=== PATIENT | female | born 1985 | race Caucasian/White ===

== ENCOUNTER 2016-06-15 23:54 | Emergency (ER) | payer BC, OTHER ==
[~2016-06-15] VITALS: Ht 162.6 cm; Wt 88.6 kg
[~2016-06-15 23:54] MED LIST: ACET1TAB40 PO; ACET650S9 PR; CETI10CA PO; HYDR-906 PO; NITR-58 PO; ZOF8 PO
[2016-06-16 00:36] VITALS: Ht 162.6 cm; Wt 88.6 kg
[2016-06-16] MEDS ORDERED: CYCL-319 PO (04:30)
[2016-06-16] MEDS ORDERED: HYDR-906 PO (04:30)
[2016-06-16] MEDS ORDERED: IBUP-1542 PO (04:30)
[2016-06-16 04:40] VITALS: BP 101/60; PULSE 72; RESP 20; TEMP 98.3
--- NOTE | 2016-06-16 04:45 | ERD ---
ER Documentation Chief Complaint Date/Time DATE: 06/16/16 TIME: 04:43 Chief Complaint C/O NECK PAIN, PT WAS PLAY FIGHTING W/ SIBLING HPI 30-year-old female presents here in emergency department for complaints of left neck pain after being told backwards by sibling while playing today in her neck area. Patient describes the pain as throbbing pain, 6/10 scale, is worse upon movement. Patient denies any shortness of breath. Patient denies any numbness or tingling. She did not take any medications for pain. ROS All systems reviewed and are negative except as per history of present illness. Medications Home Meds Active Scripts Cyclobenzaprine Hcl* (Cyclobenzaprine Hcl*) 10 Mg Tablet, 10 MG PO TID, #15 TAB Prov:ROMAN ALCOCER NP 06/16/16 Hydrocodone/Acetaminophen ([place] 5-325 Tablet) 1 Each Tablet, 1 TAB PO Q6H Y for SEVERE PAIN LEVEL 7-10, #20 TAB Prov:ROMAN ALCOCER NP 06/16/16 Ibuprofen* (Motrin*) 600 Mg Tab, 600 MG PO Q6H Y for PAIN AND OR ELEVATED TEMP, #30 TAB Prov:ROMAN ALCOCER NP 06/16/16 Hydrocodone/Acetaminophen ([place] 5-325 Tablet) 1 Each Tablet, 1 TAB PO Q6H Y for PAIN, #10 TAB Prov:KINJAL DAIGLE 01/16/16 Nitrofurantoin Monohyd Macrocr* (Macrobid*) 100 Mg Capsr, 100 MG PO BID for 7 Days, CAP Prov:KINJAL DAIGLE 01/16/16 Cetirizine Hcl* (Zyrtec*) 10 Mg Capsule, 10 MG PO DAILY, #14 TAB.CHEW Prov:BRITTNEY KANC 02/21/15 Acetaminophen-Codeine* (Acetaminophen-Cod #3*) 300-30 Mg Tab, 1 TAB PO Q4H Y for PAIN, #7 TAB Prov:BRITTNEY KANC 02/21/15 Ondansetron Hcl* (Zofran* ODT) 8 mg -ODT Tab.disper, 8 MG PO Q6 Y for NAUSEA AND /OR VOMITING, #10 TAB Prov:BRITTNEY KAN PA-C 02/21/15 Ondansetron Hcl* (Zofran* ODT) 8 mg -ODT Tab.disper, 8 MG PO Q6 Y for NAUSEA AND /OR VOMITING, #6 TAB Prov:CHERI GASTELUM MD 02/09/15 Acetaminophen* (Acephen*) 650 Mg Supp.rect, 650 MG TX Q4H Y for PAIN AND OR ELEVATED TEMP for 14 Days, SUPP.RECT Prov:CHERI GASTELUM MD 02/09/15 Allergies Allergies: Coded Allergies: epinephrine (Verified Allergy, Intermediate, HEART PALPITATIONS, 06/16/16) MIXED WITH LIDOCAINE AT DENTIST OFFICE. PMhx/Soc History of Surgery: Yes (gastric sleeve, right oophrectomy) Anesthesia Reaction: No Hx Neurological Disorder: No Hx Respiratory Disorders: No Hx Cardiac Disorders: No Hx Psychiatric Problems: No Hx Miscellaneous Medical Probl: No Hx Alcohol Use: No Hx Substance Use: No Hx Tobacco Use: No Smoking Status: Never smoker FmHx Family History: diabetes Physical Exam Vitals Vital Signs Date Time Temp Pulse Resp B/P Pulse Ox O2 Delivery O2 Flow Rate FiO2 06/16/16 04:40 98.3 72 20 101/60 98 Room Air 06/16/16 00:36 97.9 85 20 114/67 99 Physical Exam GENERAL: The patient is well developed and appropriate for usual state of health, in no apparent distress. CHEST: Clear to auscultation bilaterally. There are no rales, wheezes or rhonchi. HEART: Regular rate and rhythm. No murmurs, clicks, rubs or gallops. No S3 or S4. ABDOMEN: Soft, nontender and nondistended. Good bowel sounds. No rebound or guarding. No gross peritonitis. No gross organomegaly or masses. No Diaz sign or McBurney point tenderness. BACK: No midline or flank tenderness. Muscle spasms noted in the left paraspinal aspect of the cervical spine, able to do full range of motion of the cervical spine without any restriction. No ecchymosis noted. No deformity noted. No neck swelling noted. EXTREMITIES: Equal pulses bilaterally. There is no peripheral clubbing, cyanosis or edema. No focal swelling or erythema. Full range of motion. Grossly neurovascularly intact. NEURO: Alert and oriented. Cranial nerves 2-12 intact. Motor strength in all 4 extremities with 5/5 strength. Sensation grossly intact. Normal speech and gait. SKIN: There is no apparent rash or petechia. The skin is warm and dry. HEMATOLOGIC AND LYMPHATIC: There is no evidence of excessive bruising or lymphedema. No gross cervical, axillary, or inguinal lymphadenopathy. Procedures/MDM Medical Decision Making: Patient's pain is most likely consistent with a neck contusion or a sprain. There is no suspicion for neurovascular compromise. Patient has intact sensation and circulation of the affected extremity. There is low suspicion for septic arthritis. Patient does not have any fever. Radiology exams of affected area not indicated at this time. Disposition: Home. Patient is given prescription for ibuprofen for mild to moderate pain, [place] for severe pain and Flexeril for muscle spasm. Patient was advised to apply ice on affected area. Patient was advised that if symptoms are worse, numbness, tingling, high fever, unable to move joint, worsening symptoms, to return to emergency department immediately. Otherwise, patient is advised to follow up with the primary care doctor in 5-7 days for reevaluation of symptoms. Departure Diagnosis: Primary Impression: Neck pain Condition: Stable Patient Instructions: Neck Sprain/Strain ROMAN ALCOCER NP June 16, 2016 04:45
== END 2016-06-16 04:40 | disposition home or self-care (01) ==
LOC: FTE 23:54
DX: M54.2 Cervicalgia (principal); Z04.3 Encounter for examination and observation following other accident
CPT/HCPCS: 99284